=== PATIENT | male | born 1985 | race Caucasian/White ===

== ENCOUNTER 2016-07-19 07:38 | Emergency (ER) | payer OTHER ==
[2016-07-19] MEDS ORDERED: IBUPROFEN 800 MG TABLET PO STA (07:49)
--- NOTE | 2016-07-19 07:52 | ED Physician Documentation ---
PD HPI HEENT - Stated complaint Stated Complaint: SORE THROAT - Chief complaint Chief Complaint: Heent - History obtained from History obtained from: Patient - History of Present Illness Timing - onset: Yesterday Timing - duration: Days (This is the second day.) Timing - details: Still present Location: Throat Worsens: Swalllowing Associated symptoms: Swollen nodes. No: Fever, Congestion, Cough Similar symptoms before: Has not had sx before - Additional information Additional information: The patient is an otherwise healthy 31-year-old male who presents with sore throat. His symptoms started yesterday, and his sore throat is worse today. It is worse when swallowing. He denies fever, headache, earache, cough, or abdominal symptoms. He has no history of similar symptoms in the past. Vaccinations are up to date. He does not smoke cigarettes. Review of Systems Constitutional: denies: Fever Eyes: denies: Discharge Ears: denies: Ear pain Nose: denies: Congestion Throat: reports: Sore throat Cardiac: denies: Chest pain / pressure Respiratory: denies: Dyspnea, Cough GI: denies: Abdominal Pain, Nausea, Vomiting : denies: Dysuria Skin: denies: Rash Musculoskeletal: denies: Back pain Neurologic: denies: Syncope, Headache PD PAST MEDICAL HISTORY - Past Medical History Cardiovascular: None Respiratory: None Neuro: None Endocrine/Autoimmune: None - Present Medications Home Medications: Ambulatory Orders Medication Instructions Recorded Confirmed HYDROcod/ACETAM 5/325 [[place] 5/325] 1 - 2 ea PO Q6H PRN #15 tablet 07/19/16 Penicillin V Potassium 500 mg PO QID #40 tablet 07/19/16 - Allergies Allergies/Adverse Reactions: Allergies Allergy/AdvReac Type Severity Reaction Status Date / Time No Known Drug Allergies Allergy Verified 07/19/16 07:48 PD ED PE NORMAL - Vitals Vital signs reviewed: Yes (normal) - General General: Alert and oriented X 3, Well developed/nourished - HEENT HEENT: Atraumatic, EOMI, Ears normal, Other (Oropharynx is mildly erythematous, without exudate.) - Neck Neck: Supple, no meningeal sign, No JVD, Other (Enlarged anterior cervical nodes bilaterally.) - Cardiac Cardiac: RRR, No murmur - Respiratory Respiratory: No respiratory distress, Clear bilaterally - Abdomen Abdomen: Soft, Non tender - Back Back: No CVA TTP - Derm Derm: No rash - Extremities Extremities: No edema, No calf tenderness / cord - Neuro Neuro: Alert and oriented X 3, No motor deficit, Normal speech Results - Vitals Vitals: Oxygen O2 Source Room air - Labs Labs: Laboratory Tests 07/19/16 07:44 Group A Strep Rapid POSITIVE H PD MEDICAL DECISION MAKING - ED course Complexity details: reviewed results, re-evaluated patient, considered differential, d/w patient ED course: The patient's presentation is consistent with streptococcal pharyngitis, which is confirmed with rapid strep screen. Treatment in the emergency department included administration of ibuprofen 800 mg orally. He is being discharged with prescription for penicillin. I discussed with him the expected course of illness, antibiotic treatment and outpatient follow-up, as well as potentially worrisome signs or symptoms that should prompt reevaluation in the emergency department. Departure - Departure Disposition: 01 Home, Self Care Clinical Impression: Strep pharyngitis Condition: Stable Instructions: ED Strep Pharyngitis Conf Prescriptions: HYDROcod/ACETAM 5/325 [[place] 5/325] 1 - 2 ea PO Q6H PRN #15 tablet PRN Reason: Pain Penicillin V Potassium 500 mg PO QID #40 tablet Comments: Gargle with cool liquids. Take penicillin 4 times daily as prescribed. You can use ibuprofen, up to 800 mg 3 times daily for its anti-inflammatory effect. You can use Vicodin as prescribed if needed for pain. Follow up with primary physician within 2 weeks if possible. Call to schedule an appointment. Return to the emergency department if you develop increasing difficulty swallowing, or otherwise worsening symptoms. Discharge Date/Time: 07/19/16 08:42
[2016-07-19] MEDS ORDERED: IBUPROFEN 800 MG TABLET PO ONE (08:01)
[2016-07-19 08:05] LABS: RAPID STREP SCREEN REAGENT QC YELLOW (YELLOW)
[2016-07-19 08:43] VITALS: BP 136/70
== END 2016-07-19 08:42 | disposition home or self-care (01) ==
LOC: ED 07:38
DX: J02.0 Streptococcal pharyngitis (principal)
CPT/HCPCS: 87430; 99283; A9270

== ENCOUNTER 2021-11-07 08:00 | Outpatient (CLI) | payer BC, OTHER ==
[2021-11-07 23:44] LABS: CHLAMYDIA TRACHOMATIS DNA NEGATIVE (NEGATIVE); NEISSERIA GONORRHOEAE DNA NEGATIVE (NEGATIVE)
== END 2021-11-07 23:59 | disposition home or self-care (01) ==
LOC: LAB.N 08:00
PROVIDERS: ATTEND Nurse Practitioner
DX: Z11.3 Encounter for screening for infections with a predominantly sexual mode of transmission (principal)
CPT/HCPCS: 87491; 87591; 87661

== ENCOUNTER 2021-11-08 18:02 | Outpatient (CLI) | payer BC ==
[2021-11-10 06:10] LABS: HIV SCREEN 4TH GENERATION Non Reactive (Non Reactive)
== END 2021-11-08 18:03 | disposition home or self-care (01) ==
LOC: LAB.N 18:02
PROVIDERS: ATTEND Nurse Practitioner
DX: Z11.3 Encounter for screening for infections with a predominantly sexual mode of transmission (principal)
CPT/HCPCS: 87389; 87491; 87591; 87661

== ENCOUNTER 2022-08-28 16:00 | Outpatient (CLI) | payer BC ==
[2022-08-29 09:57] LABS: CHLAMYDIA TRACHOMATIS DNA NEGATIVE (NEGATIVE); TRICHOMONAS VAGINALIS DNA NEGATIVE (NEGATIVE)
[2022-08-29 09:58] LABS: NEISSERIA GONORRHOEAE DNA NEGATIVE (NEGATIVE)
[2022-08-30 03:10] LABS: HCV AB Non Reactive (Non Reactive)
[2022-08-30 04:09] LABS: HIV SCREEN 4TH GENERATION Non Reactive (Non Reactive)
[2022-08-30 06:39] LABS: RPR Non Reactive (Non Reactive)
== END 2022-08-28 16:15 | disposition home or self-care (01) ==
LOC: LAB.N 16:00
PROVIDERS: ATTEND Physician Assistant Medical
DX: Z11.3 Encounter for screening for infections with a predominantly sexual mode of transmission (principal)
CPT/HCPCS: 86592; 86803; 87389; 87491; 87591; 87661